=== PATIENT | male | born 1995 | race Hispanic/Latino ===

== ENCOUNTER 2020-06-07 23:04 | Emergency (ER) | payer SELFPAY ==
[2020-06-07] MEDS ORDERED: LORazepam 2 MG/ML VIAL IV ONE (23:44)
[2020-06-07] MEDS ORDERED: LORazepam 2 MG/ML VIAL IV PRN ×3 (23:44)
[2020-06-07] MEDS ORDERED: SODIUM CHLORIDE 0.9% 1000 ML 1,000 ML IV ONE (23:44)
--- NOTE | 2020-06-07 23:48 | Emergency Department Report ---
ED Alcohol HPI - General Chief Complaint: Alcohol Stated Complaint: ALCOHOL WITHDRAWLS Time Seen by Provider: 06/07/20 23:40 Source: patient, EMS Mode of arrival: Ambulatory Limitations: No Limitations - History of Present Illness Initial Comments: Patient is a 25-year-old male presents emergency room for alcohol and methamphetamine withdrawal. Patient states he is been using meth and alcohol regularly for the past 5 months. Patient states he drinks about 15-16 beers per day. Patient patient states he wants rehab. Patient desires detox. Patient stat es he is feeling tremulous. Patient states feeling sweaty. Patient states he is feeling anxious. Patient states his symptoms are better with rest and worse with exertion. Patient denies chest pain. Patient denies shortness of breath. Patient denies nausea vomiting. Patient denies any pain. Patient states he is having suicidal ideations. Patient states he wants to hurt himself. Patient states he always get suicidal once he is withdrawing from methamphetamines. Patient denies recent travel. Patient denies recent international travel. Patient denies exposure to the novel coronavirus. Patient denies sick contacts. Patient denies fever and chills. Patient denies cough. Patient denies d iarrhea. Patient denies coming in contact with anybody with symptoms of the novel coronavirus. MD Complaint: alcohol withdrawal -: days(s) Chronic Alcohol Use: Yes Previous Visits for Alcohol Intoxication?: Yes Recent Trauma: No Associated Symptoms: tremors, other (Anxiety). denies: nausea, vomiting, syncope, seizure, abdominal pain, hematemesis, melena, depression, suicidality Treatments Prior to Arrival: none - Related Data Allergies Allergy/AdvReac Type Severity Reaction Status Date / Time Sulfa (Sulfonamide Allergy Hives Verified 06/07/20 23:59 Antibiotics) ED Review of Systems ROS: Stated complaint: ALCOHOL WITHDRAWLS Other details as noted in HPI Constitutional: denies: chills, fever Eyes: denies: eye pain, eye discharge, vision change ENT: denies: ear pain, throat pain Respiratory: denies: cough, shortness of breath, wheezing Cardiovascular: denies: chest pain, palpitations Endocrine: no symptoms reported Gastrointestinal: denies: abdominal pain, nausea, diarrhea Genitourinary: denies: urgency, dysuria Musculoskeletal: denies: back pain, joint swelling, arthralgia Skin: denies: rash, lesions Neurological: denies: headache, weakness, paresthesias Psychiatric: as per HPI, anxiety, suicidal thoughts. denies: depression Hematological/Lymphatic: denies: easy bleeding, easy bruising ED Past Medical Hx - Past Medical History Previous Medical History?: Yes Hx Psychiatric Treatment: Yes - Surgical History Past Surgical History?: No - Family History Family history: no significant - Social History Smoking Status: Current Every Day Smoker Substance Use Type: Alcohol, Methamphetamines ED Physical Exam - General Limitations: No Limitations General appearance: alert, anxious - Head Head exam: Present: atraumatic, normocephalic - Eye Eye exam: Present: normal appearance - ENT ENT exam: Present: mucous membranes dry - Neck Neck exam: Present: normal inspection - Respiratory Respiratory exam: Present: normal lung sounds bilaterally. Absent: respiratory distress - Cardiovascular Cardiovascular Exam: Present: regular rate, normal rhythm, tachycardia. Absent: systolic murmur, diastolic murmur, rubs, gallop - GI/Abdominal GI/Abdominal exam: Present: soft, normal bowel sounds - Rectal Rectal exam: Present: deferred - Extremities Exam Extremities exam: Present: normal inspection - Back Exam Back exam: Present: normal inspection - Neurological Exam Neurological exam: Present: alert, oriented X3 - Psychiatric Psychiatric exam: Present: anxious, suicidal ideation - Skin Skin exam: Present: warm, dry, intact, normal color. Absent: rash ED Course - Reevaluation(s) Reevaluation #1: Patient states his anxiety is better. Patient states his tremors have resolved. 06/08/20 00:33 Reevaluation #2: Patient is on ER hold. Patient is medically cleared. I discussed all results with patient. Patient remained in the ER as an ER hold until the patient is cleared by psychiatry team. 06/08/20 01:40 ED Medical Decision Making - Lab Data Result diagrams: 06/08/20 00:09 06/08/20 00:09 - Medical Decision Making Patient is a 25-year-old male presents emergency with complaints of alcohol and methamphetamine withdrawal and complaints of anxiety and tremors. Patient has been drinking taking meds for approximately 5 months straight. Patient states his last drink was 24 hours ago. Patient still has a elevated blood alcohol at 0.24. Patient had labs done is essentially unremarkable except for elevated alcohol. Patient is medically cleared. Patient was given Ativan after initial evaluation. Patient's heart rate has been normal entire time in the ER. Patient's anxiety and tremors resolved after a dose of Ativan. During initial evaluation, the patient stated he was having suicidal ideations and every time that he is withdrawing from meth he has suicidal ideations of hurting himself. Patient states he always feels like he wants to . A mental health consult was placed. Patient is medically clear patient's final disposition will come fr om our psychiatry team. Patient will remain in the ER as an ER hold. - Differential Diagnosis Alcohol withdrawal, intoxication, meth withdrawal, suicidal ideations Critical care attestation.: If time is entered above; I have spent that time in minutes in the direct care of this critically ill patient, excluding procedure time. ED Disposition Clinical Impression: Withdrawal from methamphetamine, Suicidal ideations, Anxiety Acute alcohol intoxication Qualifiers: Complication of substance-induced condition: uncomplicated Qualified Code(s): F10.920 - Alcohol use, unspecified with intoxication, uncomplicated Is pt being admited?: No Does the pt Need Aspirin: No Condition: Stable Time of Disposition: 01:39
[2020-06-08] MEDS ORDERED: THIAMINE 100 MG, FOLIC ACID 1 MG, MULTIPLE VITAMIN INJ, ADULT 10 ML in SODIUM CHLORIDE ... IV ONE (00:25)
[2020-06-08 00:48] LABS: Basophils % (Auto) 0.6 % (0.0-1.8); Eosinophils # (Auto) 0.1 K/mm3 (0.0-0.4); Eosinophils % (Auto) 0.8 % (0.0-4.3); Hematocrit 45.1 % (35.5-45.6); Hemoglobin 15.7 gm/dl (11.8-15.2); Lymphocytes # (Auto) 2.7 K/mm3 (1.2-5.4); Lymphocytes % (Auto) 42.3 % (13.4-35.0); Mean Corpuscular HGB Conc 35 % (32-34); Mean Corpuscular Volume 88 fl (84-94); Monocytes # (Auto) 0.5 K/mm3 (0.0-0.8); Monocytes % (Auto) 7.9 % (0.0-7.3); Platelet Count 180 K/mm3 (140-440); Red Blood Count 5.13 M/mm3 (3.65-5.03); Red Cell Distribution Width 14.1 % (13.2-15.2)
[2020-06-08 00:51] LABS: Alanine Aminotransferase 10 units/L (7-56); Albumin 4.5 g/dL (3.9-5); BUN/Creatinine Ratio 8; Blood Urea Nitrogen 7 mg/dL (9-20); Calcium 8.2 mg/dL (8.4-10.2); Hemolysis Index 3
[2020-06-08 00:52] LABS: Bilirubin,Urine NEG (Negative); Blood,Urine NEG (Negative); Color,Urine Yellow (Yellow); Mucus,Urine FEW /HPF; RBC,Urine < 1.0 /HPF (0.0-6.0); Urobilinogen,Urine < 2.0 mg/dL (<2.0); WBC,Urine < 1.0 /HPF (0.0-6.0)
[2020-06-08 01:00] LABS: Amphetamine Screen,Urine PRESUMPTIVE NEGATIVE; Benzodiazepines Screen,Urine PRESUMPTIVE NEGATIVE; Cannabinoid Screen,Urine PRESUMPTIVE NEGATIVE; Cocaine Screen,Urine PRESUMPTIVE NEGATIVE; Methadone Screen,Urine PRESUMPTIVE NEGATIVE; Opiate Screen,Urine PRESUMPTIVE NEGATIVE
[2020-06-08 08:32] VITALS: BP 134/69
--- NOTE | 2020-06-08 10:09 | Consultation ---
History of Present Illness - Reason for Consult Consult date: 06/08/20 Reason for consult: MHE Requesting physician: MAYO CASTORENA III - History of Present Psychiatric Illness Per ED Provider: Patient is a 25-year-old male presents emergency room for alcohol and methamphetamine withdrawal. Patient states he is been using meth and alcohol regularly for the past 5 months. Patient states he drinks about 15-16 beers per day. Patient patient states he wants rehab. Patient desires detox. Patient states he is feeling tremulous. Patient states feeling sweaty. Patient states he is feeling anxious. Patient states his symptoms are better with rest and worse with exertion. Patient denies chest pain. Patient denies shortness of breath. Patient denies nausea vomiting. Patient denies any pain. Patient states he is having suicidal ideations. Patient states he wants to hurt himself. Patient states he always get suicidal once he is withdrawing from methamphetamines. Psych HPI Patient is a 25-year-old, single, employed male who currently resides with family with past psychiatric history of depression and no other significant past medical history who presented to the ED with complaints of withdrawing from alcohol meth. Patient stated he wants to detox from alcohol and meth. Patient reported he has been using drugs for 5 years, he reported initial onset started out as occasional usual friends and now has been dependent using drugs. Patient reported using meth more than drinking alcohol, endorses having suicidal ideation otherwise withdrawing from meth use, and coming of drugs. She denies any other contributing factors to suicidal ideation. Patient endorses that his family does not note that he uses drugs, and has he does not know if they are supportive or not PAST PSYCHIATRIC HISTORY Diagnoses: MDD Suicide attempts or Self-harm behavior: Yes Prior psychiatric hospitalizations: Yes Substance Abuse history: Meth, alcohol Previous psychiatric medications tried: None report Outpatient treatment: None reported PAST MEDICAL HISTORY: HIV Family Psychiatric History: None reported or documented SOCIAL HISTORY Marital Status: Single Living Arrangements: With family Employment Status: employed Access to guns/weapons: None reported Education: GED History of Abuse: None report Legal History: None reported REVIEW OF SYSTEMS Constitutional: Negative for weight loss ENT: Negative for stridor Respiratory: Negative for cough or hemoptysis All other systems reviewed and are negative MENTAL STATUS EXAMINATION General Appearance and Behavior: Age appropriate, good hygiene, wearing appropriate clothes, good eye contact, cooperative polite with questioning. Cooperation: Participating/engaged Psychomotor Behavior: unremarkable and within normal limits Mood: Good Affect and affective range: congruent with mood Thought Process: Fluent/Logical, Thought Content: Within reality, Speech: Normal volume, Regular rate and rhythm, Intellectual Functioning: Average Suicidal Ideation: Denies SI Homicidal Ideation: Denies HI Impulse Control: Unimpaired Insight and Judgment: Normal insight and judgment, Memory: Normal, Attention: Normal, Orientation: Alert, oriented, Diagnoses: Assessment and Plan - Psychiatric problem (1) illicit drug use (2) MDD (major depressive disorder) Current Visit: Yes Status: Acute Treatment Plan Medical management recommended for alcohol and patient can be referred for outpatient meth rehab program at this point once medically stable. MEDICATIONS: Risks, benefits and alternatives of medications discussed with the patient, questions answered and consent obtained from patient. PSYCHOTHERAPY: Supportive psychotherapy provided MEDICAL: Per primary team DELIRIUM PRECAUTIONS: Please re-orient patient frequently, keep lights on during the day, and minimize benzodiazepines and opiates as these medications could worsen patient's confusion. POLICE WORKER: DISPOSITION: Do not Recommend acute inpatient psychiatric hospitalization at this time. Case discussed with Dr. Gil who agrees with current disposition LEGAL STATUS: 1013 rescinded FOLLOW-UP: Will sign off Thank you for the consult. Please contact with any questions and/or concerns. Medications and Allergies Allergies Allergy/AdvReac Type Severity Reaction Status Date / Time Sulfa (Sulfonamide Allergy Hives Verified 06/07/20 23:59 Antibiotics) Active Meds: Active Medications Lorazepam (Lorazepam 2 Mg/Ml Vial) 2 mg IV Q1HR PRN PRN Reason: CIWA-Ar 8-15 Lorazepam (Lorazepam 2 Mg/Ml Vial) 4 mg IV Q1HR PRN PRN Reason: CIWA-Ar 16-25 Lorazepam (Lorazepam 2 Mg/Ml Vial) 4 mg IV Q15MIN PRN PRN Reason: CIWA-Ar >25 Mental Status Exam - Vital signs Last Vital Signs Temp 97.9 F 06/08/20 08:23 Pulse 90 06/08/20 08:23 Resp 20 06/08/20 08:23 BP 134/69 06/08/20 08:23 Pulse Ox 97 06/08/20 08:23 Results Result Diagrams: 06/08/20 00:09 06/08/20 00:09 Abnormal lab results 0406/08/20 06/08/20 Range/Units 00:09 00:09 00:09 RBC 5.13 H (3.65-5.03) M/mm3 Hgb 15.7 H (11.8-15.2) gm/dl MCHC 35 H (32-34) % Lymph % (Auto) 42.3 H (13.4-35.0) % [place] % (Auto) 7.9 H (0.0-7.3) % BUN 7 L (9-20) mg/dL Calcium 8.2 L (8.4-10.2) mg/dL Salicylates (2.8-20.0) mg/dL Acetaminophen (10.0-30.0) ug/mL Plasma/Serum Alcohol 0.24 H (0-0.07) % 06/08/20 06/08/20 Range/Units 00:09 00:09 RBC (3.65-5.03) M/mm3 Hgb (11.8-15.2) gm/dl MCHC (32-34) % Lymph % (Auto) (13.4-35.0) % [place] % (Auto) (0.0-7.3) % BUN (9-20) mg/dL Calcium (8.4-10.2) mg/dL Salicylates < 0.3 L (2.8-20.0) mg/dL Acetaminophen 5.0 L (10.0-30.0) ug/mL Plasma/Serum Alcohol (0-0.07) % All other labs normal.
--- NOTE | 2020-06-10 13:36 | Electrocardiograph Report ---
[facility] Test Date: 2020-06-08 Test Time: 00:19:55 Pat Name: KIRILL SARAVIA Department: Room: Gender: M Triage Nurse: JEFF : 1995 Requested By: MAYO CASTORENA III Order Number: [id number] Reading MD: Marian August Measurements Intervals [place] Rate: 90 P: 41 ME: 154 QRS: -2 QRSD: 98 T: 22 QT: 372 QTc: 455 Interpretive Statements Sinus rhythm Early repolarization ST changes No previous ECG available for comparison Electronically Signed On 06-10-2020 13:35:43 EDT by Marian August
== END 2020-06-08 14:27 ==
LOC: ED 23:04
DX: F10.129 Alcohol abuse with intoxication, unspecified (principal); R45.851 Suicidal ideations; F41.9 Anxiety disorder, unspecified; F15.13 Other stimulant abuse with withdrawal; F17.200 Nicotine dependence, unspecified, uncomplicated; Z88.2 Allergy status to sulfonamides
CPT/HCPCS: 36415; 80053; 80307; 81001; 85025; 93005; 96361; 96365; 96366; 96375; 99285; J2060; J3411; J7030; 80320; G0480